=== PATIENT | male | born 1975 | race Caucasian/White ===

== ENCOUNTER 2024-01-07 06:15 | Day surgery (SDC) | payer BC ==
[2024-01-07] MEDS ORDERED: Lactated Ringers 1,000 ML IV ONE (06:23)
[2024-01-07] MEDS: Lactated Ringers 1,000 ML IV SCH (06:29)
[2024-01-07 06:40] VITALS: RESP 16; TEMP 96.5
[2024-01-07] MEDS ORDERED: Xylocaine-Mpf 2% 5 Ml Vial ONE (07:26)
[2024-01-07] MEDS ORDERED: DIPRIVAN 200 MG/20 ML IV ONE (07:26)
[2024-01-07] MEDS ORDERED: Versed 2 MG/2 ML Injection ONE (07:26)
[2024-01-07 08:09] VITALS: BP 111/77; PULSE 81; O2SAT 95
--- NOTE | 2024-01-08 11:28 | OP ---
SURGERY DATE/TIME: 01/07/2024 [id number] PREOPERATIVE DIAGNOSES: 1) Chronic gastroesophageal reflux disease. 2) Epigastric pain. POSTOPERATIVE DIAGNOSES: 1) Mild gastritis. 2) Small hiatal hernia. PROCEDURE PERFORMED: Esophagogastroduodenoscopy. SURGEON: Mika Fried MD ANESTHESIA: MAC by Amadeo Tomlin CRNA. ESTIMATED BLOOD LOSS: Minimal. SPECIMENS: Two cold forceps biopsies taken from the gastric antrum and sent for Helicobacter pylori testing. DESCRIPTION OF PROCEDURE AND FINDINGS: After informed written consent was obtained, the patient was taken to the endoscopy suite. He was placed in the left lateral decubitus position and bite block was inserted. Anesthesia was titrated to desired level of consciousness then, the endoscope was inserted in the posterior oropharynx. Under direct visualization, the esophagus was easily traversed. There was a normal mucosal appearance of the esophagus. Upon entering the stomach, there was a small hiatal hernia, which was sliding. The gastric mucosa had a normal rugated appearance with no obvious lesions or defects. The gastric antrum had some mild to moderate gastritis-type changes. No focal ulcerations or areas of bleeding. Pylorus was traversed and the duodenum had a normal mucosa appearance. Two cold forceps biopsies were taken from the gastric antrum and sent for Helicobacter testing with minimal bleeding following their removal. Upon withdrawal, again, the remainder of the exam was unremarkable the scope was removed. The patient was transferred to the recovery room in good condition. He has been advised to hold his aspirin for 1 week to allow healing in the biopsy sites. Continue his PPI at this time, and he will follow up in 1 week for pathology results.
== END 2024-01-07 08:20 | disposition home or self-care (01) ==
LOC: SDC 06:15
PROVIDERS: ATTEND Family Medicine
DX: K29.70 Gastritis, unspecified, without bleeding (principal); K21.9 Gastro-esophageal reflux disease without esophagitis; R10.13 Epigastric pain; K44.9 Diaphragmatic hernia without obstruction or gangrene
CPT/HCPCS: 93005; J2250; J2704